=== PATIENT | female | born 1950 | race Caucasian/White ===

== ENCOUNTER 2019-04-30 15:14 | Emergency (ER) | payer MEDICARE, OTHER ==
[~2019-04-30] VITALS: Ht 170.2 cm; Wt 70.8 kg
[~2019-04-30 15:14] MED LIST: AZIT250T PO; HYDR-1179 PO; PRED50TA PO
[2019-04-30] MEDS ORDERED: HYDROcodone/APAP 5/325MG 1 TAB TABLET PO ONE (15:45)
--- NOTE | 2019-04-30 15:55 | PHYS DOC ---
Past History Past Medical History: Bronchitis, High Cholesterol, Other Additional Past Medical Histor: nueropathy Past Surgical History: Cholecystectomy, Tonsillectomy, Other Additional Past Surgical Histo: left ankle Smoking: Cigarettes Alcohol Use: None Drug Use: None Adult General Chief Complaint Chief Complaint: LOWEREXTREMITY INJURY [facility] HPI Patient is a 68-year-old female brought in by apparently stepped down wrong on the second step in her garage landing on her buttock felt a crack heard a crack right below the right knee Patient is a smoker takes a high cholesterol medication. No other injury landing on buttock that does not hurt no neck pain no headache she has a regular smoker she may have mild COPD she is not really sure not diabetic no blood thinners Review of Systems Review of Systems Constitutional: Denies fever or chills [] Eyes: Denies change in visual acuity, redness, or eye pain [] HENT: Denies nasal congestion or sore throat [] Respiratory: Occasional cough Cardiovascular: No additional information not addressed in HPI [] GI: Denies abdominal pain, nausea, vomiting, bloody stools or diarrhea [] : Denies dysuria or hematuria [] All other systems were reviewed and found to be within normal limits, except as documented in this note. Current Medications Current Medications Current Medications Medications (Trade) Dose Ordered Sig/Alice Start Time Stop Time Status Last Admin Dose Admin Acetaminophen/ Hydrocodone Bitart (Lortab 5/325) 2 tab 1X ONCE 04/30/19 15:45 04/30/19 15:47 DC Allergies Allergies Allergies Coded Allergies Type Severity Reaction Last Updated Verified [id number]-Tbk-Vlr Reductase Inhibitor Allergy Unknown 04/30/19 Yes varenicline Allergy Unknown 04/30/19 Yes Physical Exam Physical Exam Constitutional: Well developed, well nourished, no acute distress, non-toxic appearance. [] HENT: Normocephalic, atraumatic, bilateral external ears normal, oropharynx moist, no oral exudates, nose normal. [] Eyes: PERRLA, EOMI, conjunctiva normal, no discharge. Cardiovascular:Heart rate regular rhythm, no murmur [] Lungs & Thorax: Faint wheezing noted Abdomen: Bowel sounds normal, soft, no tenderness, no masses, no pulsatile masses. [] Skin: Warm, dry, no erythema, no rash. [] Back: No tenderness, no CVA tenderness. [] Extremitiesttp and swelling noted right tibial plateau Neurologic: Alert and oriented X 3, normal motor function, normal sensory function, no focal deficits noted. [] Psychologic: Affect normal, judgement normal, mood normal. [] Current Patient Data Vital Signs Vital Signs Date Time Temp Pulse Resp B/P (MAP) Pulse Ox O2 Delivery O2 Flow Rate FiO2 04/30/19 15:20 97.8 77 20 98 Room Air Lab Results derate Temperature (Fahrenheit): * 97.8 degrees F (97.6-99.5) Patient Temperature * 97.8 degrees F (97.5-99.5) Temperature Source * Oral Blood Pressure Systolic * 148 mm Hg (100-140) H Blood Pressure Diastolic * 80 mm Hg (60-100) Blood Pressure Mean * 102 mm Hg Blood Pressure Source * Automatic Cuff Pulse Rate * 77 beats per minute (60-90) Pulse Assessment Method * Monitor Respiratory Rate * 20 breaths per minute (12-24) Oxygen Delivery Method * Room Air Bedside Pulse Oximetry * 98 % Treatment Prior to Arrival * No Complaint of Pain * Yes Pain Scale Type * Numeric Pain Assessment Label * Right * Pain Location Leg EKG EKG [] Radiology/Procedures Radiology/Procedures []FINDINGS/ IMPRESSION: Comminuted obliquely oriented fracture extending from the lateral tibial plateau medially towards the medial cortex of the proximal tibial diaphysis. There is a large knee joint effusion. Bone mineralization is within normal limits. Electronically signed by: Candace Lopez MD (04/30/2019 4:00 PM) [id number] DICTATED AND SIGNED BY: CANDACE LOPEZ MD DATE: 04/30/19 1600 CC: LETA HUTSON MD; DEVAN MOORE MD ~ Impressions: Tibial plateau as noted FINDINGS: Lungs: Low lung volume. No pulmonary mass or consolidation. Prominent interstitial markings. Pleura: No pleural effusion or pneumothorax. Heart and Mediastinum: Cardiomegaly. Tortuous thoracic aorta. Bones and Soft Tissues: No displaced rib fractures are seen. IMPRESSION: Low lung volume and prominent interstitial markings, which may relate to subsegmental atelectasis and/or interstitial edema. Electronically signed by: Kye Murphy MD (04/30/2019 4:06 PM) [facility] DICTATED AND SIGNED BY: KYE MURPHY MD DATE: 04/30/19 1606 CC: LETA HUTSON MD; DEVAN MOORE MD ~ Course & Med Decision Making Course & Med Decision Making Pertinent Labs and Imaging studies reviewed. (See chart for details) []68-year-old female heavy smoker history of cholesterol presenting with a tibial plateau fracture spoke with Dr. Hiram carr 4 needs traumatologist;. I then called [facility] they were full no beds available. I then called [facility] ultimately did speak with Dr. Gar orthopedic surgeon who is happy to evaluate this patient recommends transfer to the emergency room except by Dr. Arboleda notified pt Place the patient a long-leg splint I checked the placement patient was intact following the procedure compartments were soft on reevaluation patient was given good instructions about the plan of care and will at this point time is awaiting transfer via ambulance to [facility]. Noted the x-ray finding really don't think that the patient has acute pneumonia or pulmonary edema is probably mechanical in nature however give a dose of doxycycline just in case. Dragon Disclaimer Dragon Disclaimer This electronic medical record was generated, in whole or in part, using a voice recognition dictation system. Departure Departure: Impression: Primary Impression: Tibial plateau fracture Disposition: XFER SHT-TRM HOSP Condition: STABLE Referrals: LETA HUTSON MD (PCP) DEVAN MOORE MD Apr 30, 2019 15:54
--- NOTE | 2019-04-30 16:03 | RAD ---
KNEE RIGHT 3V 04/30/2019 3:37 PM INDICATION: Trauma COMPARISON: None available. TECHNIQUE: 3 views the right knee are provided. FINDINGS/ IMPRESSION: Comminuted obliquely oriented fracture extending from the lateral tibial plateau medially towards the medial cortex of the proximal tibial diaphysis. There is a large knee joint effusion. Bone mineralization is within normal limits. Electronically signed by: Ann Patel MD (04/30/2019 4:00 PM) [id number]
--- NOTE | 2019-04-30 16:09 | RAD ---
PORTABLE CHEST 1V INDICATION: Fall, pain. COMPARISON STUDY: 07/23/2016. FINDINGS: Lungs: Low lung volume. No pulmonary mass or consolidation. Prominent interstitial markings. Pleura: No pleural effusion or pneumothorax. Heart and Mediastinum: Cardiomegaly. Tortuous thoracic aorta. Bones and Soft Tissues: No displaced rib fractures are seen. IMPRESSION: Low lung volume and prominent interstitial markings, which may relate to subsegmental atelectasis and/or interstitial edema. Electronically signed by: Morgan Murphy MD (04/30/2019 4:06 PM) [facility]
[2019-04-30 16:42] LABS: BASO # 0.1 x10^3/uL (0.0-0.2); BASO % 1 % (0-3); EOS # 0.1 x10^3/uL (0.0-0.7); EOS % 2 % (0-3); HEMATOCRIT 42.7 % (36.0-47.0); HEMOGLOBIN 14.3 g/dL (12.0-15.5); LYMPH # 2.6 x10^3/uL (1.0-4.8); LYMPH % 29 % (24-48); MEAN CORPUSCULAR HEMOGLOBIN 32 pg (25-35); MEAN CORPUSCULAR HGB CONC 33 g/dL (31-37); MEAN CORPUSCULAR VOLUME 95 fL (79-100); MONO # 0.6 x10^3/uL (0.0-1.1); MONO % 7 % (0-9); NEUT # 5.5 x10^3uL (1.8-7.7); NEUT % 61 % (31-73); PLATELET COUNT 277 x10^3/uL (140-400); RED BLOOD COUNT 4.52 x10^6/uL (3.50-5.40); RED CELL DISTRIBUTION WIDTH 13.6 % (11.5-14.5); WHITE BLOOD COUNT 8.9 x10^3/uL (4.0-11.0)
[2019-04-30 17:03] LABS: ALBUMIN 3.8 g/dL (3.4-5.0); CALCIUM 9.4 mg/dL (8.5-10.1); CREATININE 0.8 mg/dL (0.6-1.0); GFR 71.5; POTASSIUM 3.5 mmol/L (3.5-5.1); TOTAL BILIRUBIN 0.3 mg/dL (0.2-1.0); TOTAL PROTEIN 7.7 g/dL (6.4-8.2)
[2019-04-30] MEDS ORDERED: DOXYCYCLINE HYCLATE 100 MG TABLET PO ONE (17:30)
[2019-04-30 18:43] VITALS: BP 151/63
== END 2019-04-30 18:45 | disposition short-term general hospital (02) ==
LOC: ER 15:14
DX: S82.141A Displaced bicondylar fracture of right tibia, initial encounter for closed fracture (principal); F17.210 Nicotine dependence, cigarettes, uncomplicated; Z88.8 Allergy status to other drugs, medicaments and biological substances; Z88.1 Allergy status to other antibiotic agents; W18.39XA Other fall on same level, initial encounter; Y93.89 Activity, other specified; Y92.59 Other trade areas as the place of occurrence of the external cause; Y99.8 Other external cause status
CPT/HCPCS: 29505; 36415; 71045; 73562; 80053; 83880; 85025; 85610; 96374; 96376; 99285; J3010

== ENCOUNTER → 2019-05-18 | Outpatient (CLI) | payer OTHER ==
[2019-04-30 18:43] VITALS: BP 151/63
--- NOTE | 2019-05-18 17:02 | RAD ---
Exam: VENOUS LOWER EXTREMITY RIGHT Indication: Pain and swelling of the right lower extremity Technique: Color-flow and pulsed wave duplex ultrasound with compression of venous structures of the right lower extremity. Comparison: None Available. Findings: Duplex ultrasound with compression of the deep venous structures of the right lower extremity from the common femoral vein through the popliteal vein is negative for DVT. The posterior tibial and peroneal veins are segmentally visualized and patent where seen. Normal venous waveforms and augmentation are noted throughout. Incidental note of monophasic arterial wave forms throughout the right lower extremity. Impression: 1. No evidence for DVT in the right lower extremity. 2. Incidental note of monophasic arterial wave forms throughout the right lower extremity, suggestive of a proximal arterial stenosis. Electronically signed by: Morgan Murphy MD (05/18/2019 4:59 PM) [id number]
== END | disposition home or self-care (01) ==
LOC: US 15:06
PROVIDERS: ATTEND Family Medicine
DX: T85.79XA Infection and inflammatory reaction due to other internal prosthetic devices, implants and grafts, initial encounter (principal); Y83.8 Other surgical procedures as the cause of abnormal reaction of the patient, or of later complication, without mention of misadventure at the time of the procedure; Y92.89 Other specified places as the place of occurrence of the external cause
CPT/HCPCS: 93971

== ENCOUNTER → 2020-05-09 | Outpatient (CLI) | payer MEDICARE ==
--- NOTE | 2020-05-16 14:58 | RAD ---
BILATERAL SCREENING MAMMOGRAM History: Routine screening. Comparison: Previous exams performed at outside facilities cannot be located. This exam has resolved as a baseline. Technique: Routine bilateral digital mammogram views were obtained. Findings: Breast Tissue Density B : There are scattered areas of fibroglandular density. There are no dominant masses or suspicious calcifications. . Possibility of distortion at the anterior left retroareolar region medially is raised. IMPRESSION: Spot compression recommended. Wang synthesis imaging in the CC projection recommended. Ultrasound may be needed. BI-RADS category 1: Negative. The images were reviewed with computer aided detection. Patient information is entered into the reminder system with a target due date for the next screening mammogram. Mammography is the most sensitive method for finding small breast cancers, but it does not detect them all and is not a substitute for careful clinical examination. A negative mammogram does not negate a clinically suspicious finding and should not result in delay in biopsying a clinically suspicious abnormality. "Our facility is accredited by the [employer] Mammography Program." Electronically signed by: Dixon Jenkins MD (05/16/2020 2:55 PM) [facility]
== END ==
LOC: MAMMO 08:50
PROVIDERS: ATTEND Family Medicine
DX: Z12.31 Encounter for screening mammogram for malignant neoplasm of breast (principal)
CPT/HCPCS: 77067

== ENCOUNTER → 2020-07-25 | Outpatient (CLI) | payer MEDICARE ==
--- NOTE | 2020-07-25 17:01 | RAD ---
XR CHEST 2V CLINICAL INDICATIONS: Chest pain. COMPARISON: April 30, 2019. Findings: No acute lung infiltrate or pleural effusion or pulmonary edema or lung mass or pneumothora x is seen. The heart size, pulmonary vasculature, mediastinum and both paul are unremarkable. Old he aled left clavicular fracture is evident.. IMPRESSION: No acute radiographic abnormality is seen. Electronically signed by: Yrn Diallo MD (07/25/2020 4:58 PM) [id number]
== END ==
LOC: PMG 15:14
PROVIDERS: ATTEND Physician Assistant Medical
DX: J44.9 Chronic obstructive pulmonary disease, unspecified (principal)
CPT/HCPCS: 71046

== ENCOUNTER → 2020-12-15 | Outpatient (CLI) | payer MEDICARE ==
--- NOTE | 2020-12-15 17:20 | RAD ---
Single contrast barium enema 12/15/2020 CLINICAL HISTORY: Increased frequency of bowel movements. TECHNIQUE: A single contrast barium enema study was performed under fluoroscopic and radiographic con trol. The total fluoroscopic time is 2 minutes 12 seconds. 5 digital spot radiographs were obtained. FINDINGS: Two AP supine digital radiographs of the abdomen/pelvis were obtained as a treatment specialist. Surgical clips overlie the right upper quadrant of the abdomen consistent with a cholecystectomy. The abdomina l bowel gas pattern is nonobstructive. Calcifications are seen within the pelvis consistent with phle boliths. Atherosclerotic calcification of the abdominal aorta and its branches is noted. Degenerative changes are seen involving the lumbar spine and both hips. The entire colon is distended with single contrast barium. The cecum is within its normal location wi thin the right lower quadrant of the abdomen. The appendix is visualized and is within normal limits. No mucosal abnormality of the colon is seen. No annular constricting lesion is noted. No fistula is visualized. No extrinsic mass effect upon the colon is seen. IMPRESSION: Negative study. Electronically signed by: Micky Ferreira MD (12/15/2020 5:17 PM) [id number]
== END ==
LOC: RAD 08:13
PROVIDERS: ATTEND Internal Medicine Gastroenterology
DX: L98.8 Other specified disorders of the skin and subcutaneous tissue (principal)
CPT/HCPCS: 74270

== ENCOUNTER → 2021-09-04 | Outpatient (CLI) | payer MEDICARE ==
--- NOTE | 2021-09-06 11:42 | RAD ---
EXAM: Carotid Doppler sonogram. HISTORY: Atherosclerosis. Smoking. Dizziness. Bruit. TECHNIQUE: Navarro scale and color Doppler sonographic evaluation of the neck with spectral waveform hubert lysis was performed and static images are submitted for review. FINDINGS: There is mild to moderate atherosclerotic plaque involving the carotid bulbs and right grea ter than left internal carotid arteries. The peak systolic velocity within the right common carotid artery is 147 cm/sec. The peak systolic ve locity within the right internal carotid artery is 105 cm/sec and the end diastolic velocity within t he right internal carotid artery is 25 cm/sec. The right ICA/CCA ratio is 1.0. The peak systolic velocity within the left common carotid artery is 100 cm/sec. The peak systolic najma ocity within the left internal carotid artery is 100 cm/sec and the end diastolic velocity within the left internal carotid artery is 33 cm/sec. The left ICA/CCA ratio is 1.0. There is normal antegrade flow within both vertebral arteries. There is an elevated peak systolic najma ocity within the left external carotid artery, measuring 200 cm/s. IMPRESSION: 1. Mild to moderate atherosclerotic plaque involving the carotid bulbs and right greater than left in ternal carotid arteries. 2. Doppler findings consistent with less than 50 percent stenosis involving the internal carotid jackelin chuck. 3. Doppler findings suggesting stenosis involving the left external carotid artery. PQRS Compliance Statement - Stenosis calculations for CT, MR and conventional angiography are based u marcelo measurement of the distal ICA diameter in accordance with the NASCET methodology. Stenosis calcu lations for carotid ultrasound studies are derived from validated velocity criteria which are known t o correlate with the NASCET methodology. Electronically signed by: Mayte Cowan MD (09/05/2021 9:38 AM) [facility]
== END ==
LOC: US 14:16
PROVIDERS: ATTEND Psychiatry & Neurology Neurology
DX: I65.23 Occlusion and stenosis of bilateral carotid arteries (principal); R51.9 Headache, unspecified; Z87.891 Personal history of nicotine dependence
CPT/HCPCS: 93882